=== PATIENT | female | born 1970 | race Caucasian/White ===

== ENCOUNTER 2020-05-25 19:02 | Emergency (ER) | payer OTHER, SELFPAY ==
[2020-05-25 19:09] VITALS: BP 140/70; PULSE 70; RESP 16; TEMP 36.7; O2SAT 100; BMI 25.4
[2020-05-25 19:44] VITALS: PULSE 78; RESP 18; O2SAT 100
--- NOTE | 2020-05-25 19:51 | ED.ARRPALP ---
HPI - Arrhythmia/Palpitations General Chief Complaint: Arrhythmia/Palpitations Stated Complaint: heart palpitations Time Seen by Provider: 05/25/20 19:42 Source: patient Mode of arrival: Ambulatory Limitations: no limitations History of Present Illness HPI narrative: The patient presents with palpitations. She has been having intermittent palpitations with thumping in her upper chest for about 3 weeks. Symptoms have intensified in the last 3 days, symptoms are bad enough last night she will asking the ER last night. She had symptoms again today. She stopped wine, she stopped coffee yesterday. She has allergies, she takes Sudafed occasionally, she has had 3 Sudafed in the past week with the palpitations she is having no sustained chest pain, no dyspnea, no weakness or dizziness. She checked her pulse, her pulse was in the 70s when the symptoms were occurring. Other allergies, she has no chronic medical problems. She has had no dietary changes. She denies recent illness. Related Data Home Medications Medication Instructions Recorded Confirmed fluticasone propionate 2 spray INTRANASAL QDAY #0 06/12/17 Allergies Allergy/AdvReac Type Severity Reaction Status Date / Time No Known Allergies Allergy Uncoded 10/30/17 12:17 Review of Systems Constitutional Constitutional: Denies chills, Denies fever(s) and Denies weakness Eyes Eyes: Denies change in vision, Denies eye discharge, Denies irritation and Denies loss of vision ENT Ears, Nose, Mouth, and Throat: Denies change in voice, Denies neck pain and Denies sore throat Cardiovascular Cardiovascular: Denies chest pain, Denies irregular heart rhythm, Denies lightheadedness, Denies palpitations, Denies dyspnea and Denies dyspnea on exertion Respiratory Respiratory: Denies cough, Denies dyspnea, Denies dyspnea on exertion and Denies wheezing Gastrointestinal Gastrointestinal: Denies abdominal pain, Denies change in bowel habits, Denies diarrhea, Denies nausea and Denies vomiting Musculoskeletal Musculoskeletal: Denies back pain, Denies myalgias and Denies neck pain Integumentary/Breasts Skin/Breast: Denies pruritus, Denies erythema, Denies rash and Denies wounds Neurologic Neurologic: Denies confusion, Denies loss of vision and Denies weakness Psychiatric Psychiatric: Denies anxiety, Denies confusion and Denies depression Endocrine Endocrine: Denies palpitations Allergic/Immunologic Allergic/Immunologic: Denies wheezing Patient History Medical History (Updated 05/26/20 @ 08:19 by Atul Ashraf MD) Allergies (Acute) Social History Smoking Status: Never smoker Smoking Status: Never smoker alcohol intake frequency: a few times a month Substance Use Type: does not use Exam Initial Vital Signs Initial Vital Signs: Vital Signs Temperature 98.1 F 05/25/20 19:09 Pulse Rate 70 05/25/20 19:09 Respiratory Rate 16 05/25/20 19:09 Blood Pressure 140/70 05/25/20 19:09 Pulse Oximetry 100 05/25/20 19:09 Const General: cooperative and well developed Nutritional Appearance: well nourished HENMT Head: normocephalic and atraumatic Mouth: oral mucosae normal Neck Neck: No lymphadenopathy and No JVD Resp Effort & Inspection: normal respiratory effort, able to speak in complete sentences, no respiratory distress and no use of accessory muscles Auscultation: clear to auscultation bilaterally, no rales, no rhonchi and no wheezes Cardio Rate: regular rate Rhythm: regular rhythm Heart Sounds: S1 normal, S2 normal, no click, no gallops, no murmurs and no rubs Pulses: normal peripheral pulses GI Percussion: normal to percussion Auscultation: bowels sounds not normal Back/Spine/Pelvis Back: No CVA tenderness Cervical Spine: cervical ROM normal Thoracic/Lumbar Spine: thoracic and lumbar spine normal to inspection Skin General: no rashes or lesions noted Neuro General: patient alert, patient oriented x3, gait normal and no focal motor deficits Speech: speech normal Extrem General: no pedal edema and no calf tenderness Psych Mental Status: mental status grossly normal Course Course Course Narrative: The patient is clinically stable throughout ER stay. Cardiac monitoring was normal, labs are normal. She is referred to her PCM for Holter /outpatient cardiac evaluation. Orders Ordered: ED Orders 05/25/20 19:09 EKG-12 Lead Stat 05/25/20 19:53 Basic Metabolic Panel Stat Complete Blood Count AUTO DIFF Stat Magnesium Stat Troponin & CK Cardiac Panel Stat Vital Signs Vital signs: Vital Signs - 8 hr 05/25/20 19:09 05/25/20 19:44 05/25/20 20:00 Temperature 98.1 F Pulse Rate 70 78 61 Respiratory Rate 16 18 11 L Blood Pressure 140/70 115/67 Pulse Oximetry 100 100 98 05/25/20 20:30 05/25/20 21:00 Temperature Pulse Rate 59 L 53 L Respiratory Rate 9 L 16 Blood Pressure 109/56 L 107/53 L Pulse Oximetry 96 96 MDM - Arrhythmia/Palpitations Lab Data Attestation: I reviewed the patient's lab results. (Normal sinus rhythm rate 73 beats per minute. Normal intervals. No ectopy. No acute ST T wave changes. Normal study.) Result diagrams: 05/25/20 19:53 05/25/20 19:53 Labs: Lab Results 05/25/20 05/25/20 05/25/20 Range/Units 19:53 19:53 19:53 WBC 7.9 (4.5-11.0) X10^3/uL RBC 4.28 (4.0-5.2) X10^6/uL Hgb 12.9 (12.0-16.0) g/dL Hct 38.3 (36-46) % MCV 89.6 (80-100) fL MCH 30.1 (26-34) PG MCHC 33.6 (30-36) % RDW 12.8 (11.6-14.8) % Plt Count 257 (150-400) X10^3/uL Neut % (Auto) 47.6 L (50-75) % Lymph % (Auto) 40.1 H (25-40) % [place] % (Auto) 8.1 (3-14) % Eos % (Auto) 3.4 (2-4) % Baso % (Auto) 0.8 (0-2) % Neut # (Auto) 3700 (7298-7950) /uL Lymph # (Auto) 3200 (7514-3430) /uL [place] # (Auto) 600 (0-900) /uL Eos # (Auto) 300 (0-450) /uL Baso # (Auto) 100 (0-100) /uL Sodium 138 (137-145) mmol/L Potassium 3.8 (3.4-5.1) mmol/L Chloride 103 (98-107) mmol/L Carbon Dioxide 27 (22-32) mmol/L BUN 21 H (7-17) mg/dL Creatinine 0.77 (0.52-1.04) mg/dL Estimated GFR > 60.0 (>60) mL/min BUN/Creatinine Ratio 27.3 H (6-22) Glucose 111 H (70-100) mg/dL Calcium 9.6 (8.4-10.2) mg/dL Magnesium 2.2 (1.6-2.3) mg/dL Total Creatine Kinase 72 (30-135) U/L CK-MB (CK-2) TNP CK-MB (CK-2) Rel Index TNP Troponin I < 0.012 (0.01-0.034) ng/mL ECG Data Attestation: I personally reviewed and interpreted this ECG as follows: (Normal sinus rhythm, no ectopy.) Discharge Plan Departure Patient Disposition: Home Clinical Impression: Heart palpitations Discharge Date/Time: 05/25/20 21:26 Instructions: DI for Palpitations Activity Restrictions/Additional Instructions: Be sure you drink plenty fluids and remain well hydrated. Avoid alcohol, avoid caffeine. I would suggest you do not use Sudafed. You may use Mucinex every 6 hours as necessary for sinus congestion. I recommend he follow up your doctor, and seek outpatient cardiac monitoring. Return to the ER as needed. Prescriptions: No Action fluticasone propionate 16 GM spray,suspension 2 spray Intranasal QDAY Qty: 0 RF: 0 Referrals: Annette Lincoln MD [Primary Care Provider] -
[2020-05-25 20:00] VITALS: BP 115/67; PULSE 61; RESP 11; O2SAT 98
[2020-05-25 20:00] LABS: Add Manual Diff / Slide Review NO; Basophils Absolute Auto 100 /uL (0-100); Basophils Percent Auto 0.8 % (0-2); Eosinophils Absolute Auto 300 /uL (0-450); Eosinophils Percent Auto 3.4 % (2-4); Hematocrit 38.3 % (36-46); Hemoglobin 12.9 g/dL (12.0-16.0); Lymphocytes Absolute Auto 3200 /uL (1100-4500); Lymphocytes Percent Auto 40.1 % (25-40); Mean Corpuscular HGB Conc 33.6 % (30-36); Mean Corpuscular Hemoglobin 30.1 PG (26-34); Mean Corpuscular Volume 89.6 fL (80-100); Monocytes Absolute Auto 600 /uL (0-900); Monocytes Percent Auto 8.1 % (3-14); Neutrophils Absolute Auto 3700 /uL (1500-7000); Neutrophils Percent Auto 47.6 % (50-75); Platelet Count 257 X10^3/uL (150-400); Red Blood Cell Count 4.28 X10^6/uL (4.0-5.2); Red Cell Distribution Width 12.8 % (11.6-14.8); White Blood Cell Count 7.9 X10^3/uL (4.5-11.0)
[2020-05-25 20:11] LABS: BUN Creatinine Ratio 27.3 (6-22); Blood Urea Nitrogen 21 mg/dL (7-17); Calcium 9.6 mg/dL (8.4-10.2); Carbon Dioxide 27 mmol/L (22-32); Chloride 103 mmol/L (98-107); Creatine Kinase 72 U/L (30-135); Estimated Glomerular Filt Rate > 60.0 mL/min (>60); Glucose 111 mg/dL (70-100); HEMOLYSIS < 15 (0-50); Magnesium 2.2 mg/dL (1.6-2.3); Potassium 3.8 mmol/L (3.4-5.1); Sodium 138 mmol/L (137-145)
[2020-05-25 20:23] LABS: Troponin I < 0.012 ng/mL (0.01-0.034)
[2020-05-25 20:30] VITALS: BP 109/56; PULSE 59; RESP 9; O2SAT 96
[2020-05-25 21:00] VITALS: BP 107/53; PULSE 53; RESP 16; O2SAT 96
== END 2020-05-25 21:26 | disposition home or self-care (01) ==
PROVIDERS: Emergency Provider Emergency Medicine; PCP Nurse Practitioner Family; Referring Provider Nurse Practitioner Family
DX: R00.2 Palpitations (principal)
CPT/HCPCS: 36415; 80048; 82550; 83735; 84484; 85025; 93005; 99283; 99284